=== PATIENT | male | born 1935 | race African-American/Black ===

== ENCOUNTER 2017-04-01 02:32 | Observation (INO) | payer MEDICARE, BC ==
--- NOTE | ~2017-04-01 | HP ---
History And Physical [address] [place]. [address] NAME: MADELEINE PORTILLO : 39 STATUS : ADM Kirill PAT#: [id number] AGE: 81 ADM/REG DATE : 04/01/17 MR#: [id number] REPORT SERV DATE: 04/01/17 DICTATED BY: DOUGIE RIVAS DATE: 04/01/17 REPORT STATUS : Draft TRANSCRIBED BY: MODL DATE: 04/01/17 DATE OF ADMISSION: 04/01/2017 REPORT TITLE: Cardiology History and Physical BODY AFTER REPORT TITLE: INDICATION FOR ADMISSION: Palpitations and demand ischemia. HISTORY OF PRESENT ILLNESS: Mr. Portillo is a 81-year-old male with a history of hypertension, diabetes, hyperlipidemia, stage 4 CKD, and chronic iron deficiency anemia (colonoscopy outpatient planned this month), who presented to the ER with palpitations. He is very active at home and performs all ADLs and even more vigorous activities such as yard work independently with no symptoms of chest pain, angina, or shortness of breath. He described onset of palpitations last evening as a brief "vibration" sensation occurring over the left chest. Onset was spontaneous and resolved after only 1-2 seconds. After several concurrent episodes, he presented to the ER for further evaluation. There was no nausea or vomiting, no diaphoresis, and no edema. EKG on arrival showed sinus rhythm with LVH and nondiagnostic ST abnormalities, which was unchanged on serial tracings. His creatinine on admission was 3.5. Hemoglobin of 13 with an MCV of 70. Troponin in that setting was 0.2. REVIEW OF SYSTEMS: Pertinent positives and negatives are as outlined above, all others are negative. PAST MEDICAL HISTORY: 1. Hypertension. 2. Diabetes mellitus. 3. Hyperlipidemia. 4. Iron deficiency anemia. 5. Chronic kidney disease. CURRENT MEDICATIONS: 1. Carvedilol 6.25 mg twice daily. 2. Amlodipine and benazepril 5/20 mg twice daily. 3. Losartan 100 mg daily. 4. Pravastatin 20 mg at bedtime. 5. Terazosin 5 mg at bedtime. 6. Aggrenox 200/25 mg daily. 7. Iron supplementation. ALLERGIES: NO KNOWN DRUG ALLERGIES. SOCIAL HISTORY: He does not use tobacco products, consume alcohol, or illegal drugs. FAMILY HISTORY: No significant premature CAD, cardiomyopathy, or sudden . History And Physical [address] [address] NAME: MADELEINE PORTILLO : 39 STATUS : ADM Kirill PAT#: [id number] AGE: 81 ADM/REG DATE : 04/01/17 MR#: [id number] REPORT SERV DATE: 04/01/17 DICTATED BY: DOUGIE RIVAS DATE: 04/01/17 REPORT STATUS : Draft TRANSCRIBED BY: MODRosey DATE: 04/01/17 PHYSICAL EXAMINATION: VITALS: Temperature is afebrile, pulse 74, respirations 16, blood pressure 150/70. MENTAL STATUS: Awake, alert, and oriented x3. PSYCH: Euthymic, normal affect. GENERAL: Well appearing and in no distress. HEENT: Sclerae anicteric, mucous membranes moist and without lesions. NECK: No jugular venous distention. No hepatojugular reflux, carotid upstrokes 2+ and symmetric, there are no carotid or subclavian bruit. LUNGS: Clear to auscultation without wheezes, crackles, or rales. CARDIOVASCULAR: Regular with normal S1 and S2, no murmurs, no S3 or S4, no parasternal lift, PMI is nondisplaced and nonsustained. ABDOMEN: Soft and nontender. Bowel sounds positive and normoactive. No hepatomegaly, no masses, no abdominal bruit. PULSES: Radial and dorsalis pedis pulses 2+ and symmetric. EXTREMITIES: Warm and without edema. SKIN: No clubbing or cyanosis, no rashes or lesions. IMPRESSION: 1. Palpitations. 2. Demand ischemia. 3. Hypertension. 4. Chronic kidney disease, stage 4. 5. Diabetes mellitus type 2. 6. Hyperlipidemia. 7. Iron deficiency anemia. PLAN: Mr. Portillo presents with atypical chest pain and palpitations with no exertional symptoms whatsoever. He is very active at home with no limitations. Abnormal troponin was incidental and likely due to demand ischemia with hypertension and LVH in the setting of chronic kidney disease. He has been in sinus rhythm here with no arrhythmias. Recheck a second troponin. If this is negative, recommend nuclear stress test to rule out high risk features as he undergoes his GI evaluation for iron deficiency anemia. He could then be discharged home safely. We will stop concomitant ANGELA/ARB due to risk of hyperkalemia with chronic kidney disease. Heparin and invasive procedures carry risk much greater than benefits with his atypical presentation and no anginal symptoms. AEA/AMEYA Dougie Rivas M.D. / [id number] CC: Camron Porras M.D. History And Physical [address] [address] NAME: MADELEINE PORTILLO : 39 STATUS : ADM Kirill PAT#: [id number] AGE: 81 ADM/REG DATE : 04/01/17 MR#: [id number] REPORT SERV DATE: 04/01/17 DICTATED BY: DOUGIE RIVAS. DATE: 04/01/17 REPORT STATUS : Draft TRANSCRIBED BY: AMEYA DATE: 04/01/17 Juve Williamson M.D.
[2017-04-01 01:59] LABS: BASOPHILS 0.3 %; BASOPHILS ABSOLUTE 0.02 10/3/uL (0.0-0.16); EOSINOPHILS 2.9 %; ER CBC TAT 0 Hrs 07 MinsNP; HEMOGLOBIN 13.2 g/dL (13.6-17.8); IMMATURE GRANULOCYTES 0.1 %; IMMATURE GRANULOCYTES ABSOLUTE 0.01 10/3/uL (0.0-0.11); LYMPHOCYTES 41.9 %; LYMPHOCYTES ABSOLUTE 2.85 10/3/uL (0.67-4.30); MANUAL DIFF NO %; MEAN CORPUS HGB CONC 35.7 g/dL (32.0-36.0); MEAN CORPUSCULAR HEMOGLOB 26.5 pg (26.0-34.0); MEAN CORPUSCULAR VOLUME 74.3 fL (80-100); MEAN PLATELET VOLUME 9.4 fL (9.2-13.0); MONOCYTES 8.5 %; MONOCYTES ABSOLUTE 0.58 10/3/uL (0.21-1.20); NEUTROPHILS 46.3 %; NEUTROPHILS ABSOLUTE 3.15 10/3/uL (2.02-8.40); PLATELET COUNT 152 10/3/uL (150-400); RBC DISTRIBUTION WIDTH 15.6 % (12.0-16.0); RED CELL COUNT 4.98 10/6/uL (4.7-6.1); WHITE BLOOD CELLS 6.8 10/3/uL (4.5-10.5)
[2017-04-01 02:05] LABS: INTERNATIONAL NORMAL RATI 1.1 UNITS (-); PROTIME (NOT ORD) 14.5 SEC (12.0-14.5)
[2017-04-01 02:06] LABS: PARTIAL THROMBO TIME 53.6 SEC (22.5-37.2)
[2017-04-01 02:15] LABS: BUN (BLOOD UREA NITROGEN) 40 MG/DL (6-23); CHLORIDE, SERUM 110 MMOL/L (96-112); CO2 (CARBON DIOXIDE) 21 MMOL/L (24-34); CREATININE 3.46 MG/DL (0.70-1.30); GFR AFRICAN AMERICAN 18 ML/MIN (>=60); GFR NON AFRICAN AMERICAN 16 ML/MIN (>=60); GLUCOSE, SERUM 126 MG/DL (60-99); POTASSIUM, SERUM 3.7 MMOL/L (3.5-5.3); SODIUM, SERUM 143 MMOL/L (135-148)
[2017-04-01 02:19] LABS: CHEST PAIN PROFILE TAT 0 Hrs 27 Mins; TROPONIN I 0.27 NG/ML (<0.05)
[~2017-04-01 02:32] MED LIST: AGGRENOX PO; ASAB PO; COREG3 PO; COZAAR100 MG PO; FISH-EPA1000 MG PO; HYT5 PO; LOTREL1 CA2 PO; VITAMIN D1000 UNI1 PO; ZOCOR20 PO
[2017-04-01] MEDS ORDERED: FERROUS SULF325 M1 PO (04:59)
[2017-04-01] MEDS ORDERED: PRAVAC PO (05:00)
[2017-04-01] MEDS ORDERED: HYT5 PO (05:00)
[2017-04-01] MEDS ORDERED: AGGRENOX PO (05:00)
[2017-04-01] MEDS ORDERED: LOTREL1 CA2 PO (05:00)
[2017-04-01] MEDS ORDERED: COZAAR100 MG PO (05:00)
[2017-04-01] MEDS ORDERED: COREG6 PO (05:01)
[2017-04-01] MEDS ORDERED: VITAMIN D2000 UNIT PO (05:01)
[2017-04-01 08:56] LABS: CHOL/HDL RATIO(NOT ORDER) 2.4 (0-5)
[2017-04-01 08:57] LABS: TROPONIN I 0.27 NG/ML (<0.05)
[2017-04-01 13:31] LABS: FREE T4 1.09 NG/DL (0.76-1.46); ULTRASENSITIVE TSH 2.3 MCIU/ML (0.358-3.740)
[2017-04-01] MEDS ORDERED: LIPITOR40 PO (14:28)
[2017-04-01] MEDS ORDERED: NORV5 PO (14:29)
[2017-04-01] MEDS ORDERED: COREG12 PO (14:29)
== END 2017-04-01 15:01 | disposition home or self-care (01) ==
LOC: ER 02:32 → ER/OF 02:49 → CDU1 09:24 → CDU2 09:38
PROVIDERS: Specialist
DX: R00.2 Palpitations (principal); I24.8 Other forms of acute ischemic heart disease; I12.9 Hypertensive chronic kidney disease with stage 1 through stage 4 chronic kidney disease, or unspecified chronic kidney disease; E11.22 Type 2 diabetes mellitus with diabetic chronic kidney disease; E78.5 Hyperlipidemia, unspecified; G43.909 Migraine, unspecified, not intractable, without status migrainosus; N18.4 Chronic kidney disease, stage 4 (severe); E78.00 Pure hypercholesterolemia, unspecified; D50.9 Iron deficiency anemia, unspecified; R07.89 Other chest pain; Z79.899 Other long term (current) drug therapy; Z86.73 Personal history of transient ischemic attack (TIA), and cerebral infarction without residual deficits; Z98.890 Other specified postprocedural states
CPT/HCPCS: 71020; 78452; 80048; 80061; 82962; 83735; 84439; 84443; 84460; 84484; 85025; 85610; 85730; 93005; 93017; 96374; 99285; A9502; G0378; J0153; J0360